=== PATIENT | female | born 1935 | race Caucasian/White ===

== ENCOUNTER 2019-02-17 09:43 | Observation (INO) ==
--- NOTE | 2019-02-17 09:28 | Anesthesia Evaluation PreOp ---
Date of Encounter: 02/17/19 Time of Encounter: 11:03 - Past History Planned Operation: Right Total Knee Arthroplasty Cardiac History: HTN, Hyperlipidemia Pulmonary History: Former smoker (quit 40 years ago), Snore FINANCIAL OFFICER History: Denies Any Significant HX Other Medical History: Renal (CKD stage 3), Thyroid, GERD, Other (polymyalgia rheumatica on chronic steroids) Anesthesia History: No Prior Anesthetic Complications, Past Anesthesia Alcohol Use: rarely Drug use: none Medications and Allergies Amitriptyline [Elavil] 25 mg PO BID 02/17/19 [History] Amlodipine Besylate 10 mg PO DAILY 02/17/19 [History] Cholecalciferol (D-3) [Vitamin D] 1,000 unit PO BID 02/17/19 [History] Furosemide [Lasix] 20 mg PO DAILY PRN 02/17/19 [History] Levothyroxine [Synthroid] 25 mcg PO 0630 02/17/19 [History] Multivitamin [One Daily Multivitamin] 1 tab PO DAILY 02/17/19 [History] Omeprazole 20 mg PO DAILY 02/17/19 [History] Primidone 50 mg PO DAILY 02/17/19 [History] predniSONE [Prednisone] 2.5 mg PO DAILY 02/17/19 [History] Allergy/AdvReac Type Severity Reaction Status Date / Time alendronate sodium Allergy swelling Verified 02/17/19 10:20 [From Fosamax] ciprofloxacin [From Cipro] Allergy swelling Verified 02/17/19 10:20 codeine Allergy Rash Verified 02/17/19 10:20 colesevelam Allergy unknown Verified 02/17/19 10:20 doxycycline Allergy Rash Verified 02/17/19 10:20 Erythromycin Base Allergy Rash Verified 02/17/19 10:20 iodine Allergy swelling Verified 02/17/19 10:20 meclizine [From Antivert] Allergy unknown Verified 02/17/19 10:20 Penicillins Allergy swelling Verified 02/17/19 10:20 Quinolones Allergy unknown Verified 02/17/19 10:20 Vfqsziq-Iis-Cdh Reductase Allergy Hives Verified 02/17/19 10:20 Inhibitor [Statins] meperidine [From Demerol] AdvReac Gastrointestinal Verified 02/17/19 10:20 Upset morphine AdvReac Gastrointestinal Verified 02/17/19 10:20 Upset - Meds/Allergy Pre-op Review Medications Reviewed: Yes Allergies Reviewed: Yes Beta Blockers on Current Med List: No Anesthesia Results - Labs Laboratory Tests 02/03/19 02/03/19 02/03/19 10:52 10:52 10:52 WBC 6.5 Hgb 12.3 Hct 37.0 Plt Count 320 PT 10.6 INR 0.9 APTT 26.8 Sodium 138 Potassium 3.8 BUN 13 Creatinine 1.18 - Imaging EKG: report reviewed (02/06/2019 SINUS RHYTHM MARKED LEFT AXIS DEVIATION [QRS AXIS < -30] MINIMAL VOLTAGE CRITERIA FOR LVH, CONSIDER NORMAL VARIANT POSSIBLE ANTERIOR MYOCARDIAL INFARCTION [30 ms Q WAVE IN V3/V4, OR R < 0.2 mV IN V4], OF INDETERMINATE AGE) Additional studies: 06/26/2017 Stress Impression: Perfusion imaging was negative for ischemia or infarct. Pharmacologic stress ECG is negative for ischemia at level of heart rate achieved. No appreciable change in pharmacologic ECG from baseline. Patient had 5/10 chest pain/pressure during pharmacologic stress. Patient hypertensive throughout testing, SBP 160-170 mmHg. Gated EF > 70%. Recommend clinical correlation. 05/03/2017 Echo Impressions: LVEF 55-60%. Normal LV chamber size and function. Asymmetric hypertrophy of the basal seputm. Mild left ventricular diastolic dysfunction. Normal right ventricular structure and function. Mild aortic regurgitation. No evidence of pulmonary hypertension. Anesthesia Exam O2 Sat Height 1.6 m Height 1.6 m Weight 70.307 kg Weight 70.307 kg O2 Sat by Pulse Oximetry 96 O2 Sat by Pulse Oximetry 96 Vital Signs Temp Pulse Resp BP Pulse Ox 98.8 F 89 18 165/87 96 02/17/19 10:05 02/17/19 10:05 02/17/19 10:05 02/17/19 10:05 02/17/19 10:05 Height: 5'3'' Weight: 155 lbs NPO (# of Hours): 8 Pain Scale: 0 Pain Scale Used: Numeric (1 - 10) - HEENT Pupil (Motor): EOMI Mallampati: II Teeth: Edentulous Denture Type: Upper: Complete, Lower: Complete Oral Opening: Greater than 3 - FINANCIAL OFFICER LOC: Oriented FINANCIAL OFFICER Motor: Normal RUE, Normal LUE, Normal RLE, Normal LLE, Normal Face FINANCIAL OFFICER Sensory: Normal: RUE, LUE, RLE, LLE, Face - Cardiac Rhythm: Regular Murmur: None - Pulmonary Breath Sounds: bilateral Clear Respiratory Effort: Symmetrical Anesthesia Assess/Plan ASA Score: 3 Level of consciousness: Cooperative, Oriented, Tranquil Anesthetic Plan: General, Regional Nerve Block Regional Nerve Block Plan: Adductor canal Reason for No Neuroaxial/Regional Block: Patient refusal Monitoring Plan: Standard Monitors Recovery Plan: PACU
--- NOTE | 2019-02-17 09:54 | History & Physical Report ---
Date of Encounter: 02/17/19 Time of Encounter: 09:53 24 Hour HP Update - Instructions Instructions: If the History and Physical is less than 30 days old and was completed prior to A.M. admission and or procedure and has NOT been updated on calendar day of procedure please complete this update prior to performing procedure. - Update Patient reports changes in Medical Condition: No Changes in examination, assessment, or condition: No Changes in Medication: No Preop tests/diagnostics Reviewed: Yes Surgery Remains Indicated: Yes Consent for Planned Operative Procedure(s) Verified: Yes - Pre-Operative Checklist Preoperative Checklist Indicated: No Prophylactic Antibiotic Ordered: Yes Is VTE Prophylaxis Indicated?: Yes
[2019-02-17] MEDS ORDERED: Clindamycin 900 MG/50 ML 900 MG/50 ML IV.SOLN IVPB ONE (10:23)
[2019-02-17] MEDS ORDERED: Ringers Solution, Lactated 1,000 ML IVC SCH (10:30)
[2019-02-17] MEDS ORDERED: *HR* FentaNYL (PF) 100 MCG/2 ML VIAL ONE (10:33)
[2019-02-17] MEDS ORDERED: *HR* Midazolam HCl 2 MG/2 ML VIAL ONE (10:33)
[2019-02-17] MEDS ORDERED: Lidocaine -MPF 2% 2 ML VIAL ONE (10:35)
[2019-02-17] MEDS ORDERED: *HR* OxyCODONE ER (12 HR) 10 MG TABLET PO ONE (11:07)
[2019-02-17] MEDS ORDERED: Ondansetron 4 MG/2 ML VIAL IVP ONE (11:08)
[2019-02-17] MEDS ORDERED: Total Joint Mixture (50 ml) IR ONE (12:05)
[2019-02-17] MEDS ORDERED: ROPIVACAINE/PF/NS 0.25% 1 EACH SYRINGE INTRAART ONE (12:08)
[2019-02-17] MEDS ORDERED: Ethanol\\Acetic Acid\\Na Ace\\Ben 1,000 ML IRRIG.SOLN IR ONE (12:09)
[2019-02-17] MEDS ORDERED: Lidocaine HCL 4 ML Topical Solution (Laryng-O-Jet Kit Sterile Pak) TP ONE (12:10)
[2019-02-17] MEDS ORDERED: *HR* Propofol 200 MG/20 ML VIAL IVP ONE (12:10)
[2019-02-17] MEDS ORDERED: *HR* Succinylcholine 200 MG/10 ML VIAL IVP ONE ×2 (12:11→14:20)
[2019-02-17] MEDS ORDERED: *HR* Rocuronium Bromide 50 MG/5 ML VIAL ONE (12:11)
[2019-02-17] MEDS ORDERED: Hydrocortisone Sodium Succ 100 MG/2 ML VIAL ONE (12:21)
[2019-02-17] MEDS ORDERED: Ondansetron 4 MG/2 ML VIAL ONE (12:46)
[2019-02-17] MEDS ORDERED: EPHEDrine 50 MG/ML VIAL ONE (12:49)
[2019-02-17] MEDS ORDERED: Tranexamic Acid 1,000 MG/10 ML VIAL ONE (12:49)
--- NOTE | 2019-02-17 13:24 | Anesthesia Procedures ---
Date of Encounter: 02/17/19 Time of Encounter: 12:05 Procedures: Anesthesia - Nerve Block Procedure Date: 02/17/19 Time: 12:05 Allergies/Adv Reactions: multiple see chart Pre-op Diagnosis: right knee arthritis Surgical Procedure: right total knee Checklist: Correct Patient Identifier, Correct procedure, History checked Correct side: Right Blood Thinner: No Monitor Applied: EKG, BP, Pulse Oximetry Supplemental Oxygen via Nasal Cannula (L/min): 2 Sedation: Versed (mg): 1 Sedation: Fentanyl (mcg): 50 Indication: Post Op Analgesia Pre-op Neuro Deficits: No Block Type: Other (adductor canal) Catheter placed: No Sterile Technique: Yes Ultrasound used: Yes Anatomy identified: Yes Visual spread of Local: Yes Neuro Stimulation: No Blood on Needle Aspiration: No Smooth Injection of Local: Yes Pain with Injection of Local: No Needle: 21 x 100 mm Stimuplex Local: Ropivacaine (0.25% ) Volume (cc): 15 Number of Attempts: 1 Complications: None/effective block Vitals: see nurses notes for vitals, patient tolerated well
--- NOTE | 2019-02-17 13:29 | Orthopedic Operative Note ---
Date of procedure: 02/17/19 Pre-op diagnosis: Right knee arthritis Post-op diagnosis: same Procedure: Procedure: Right robotic-assisted Total knee replacement Estimated blood loss: 200 cc Hardware: Metal and polyethylene replacement. [place] Femur: 4 Tibia: 3 TS insert: 13 Patella: 36 Exam Under anesthesia: 0 degrees flexion-extension, 10 degree varus as calculated by the robot full flexion and no instability Procedural Notes: Grade 4 arthritic changes all 3 compartments. Operative procedure: The patient was brought to the operating room and placed on the operating room table. After anesthesia was administered the operative knee was examined. Findings were noted in the exam under anesthesia. The operative extremity was prepped and draped in sterile surgical fashion. The patient received IV antibiotics prior to skin incision. A standard midline incision was made centered over the patella. The incision was made through the skin and subcutaneous tissue. A medial parapatellar tendon approach was performed. Care was taken to preserve tissue along the medial aspect of the patella. And to protect the patella tendon. The deep MCL was released off the medial tibia. The infra patella fat pad was excised. The patella was everted and cut was made at the level of the insertion of the quadriceps and patella tendon. The patella was sized the guide was seated and the lug holes are drilled. Knee was brought into flexion. Patient noted to have grade 4 arthritic changes all 3 compartments. Steinmann pins were placed in the tibia and the femur for the tibial and femoral arrays respectively. Checkpoints were also placed in the tibia and the femur for calculation purposes. The knee including the femur and the tibial registered. Osteophytes, ACL and PCL were excised at this point. Extension and flexion were assessed with a valgus stress components were adjusted on the computer to balance the knee. Femoral cuts were made first with robotic assistance, these included the anterior cut posterior cuts chamfer cuts. Tibial cut was then performed with robotic assistance as well. Bone fragments were removed, as well as the medial and lateral meniscus. The size 4 femoral guide was seated box cut was made lug holes are drilled. The size 3 tibial tray was seated and prepared with the fin cutter. Trial reduction with the 13 TS Tita revealed 0 degrees extension of and 3 degrees varus full flexion. No varus valgus instability. Trial reduction revealed excellent patella tracking. All trial components were removed all bony surfaces were irrigated. The Tibia was seated followed by the femur, The selected Tita size was seated and secured patella. Patient had similar findings for motion and stability. The knee was closed by the PA. The knee was then irrigated out with 2 L of pulse irrigation. The extensor mechanism was closed with #2 FiberWire suture and #2 PDS suture. The subcutaneous tissue was then irrigated and closed deep with #1 PDS suture superficially with 0 PDS suture and skin was closed with zip tie The patient was then placed in a sterile dressing and a postoperative brace and transferred to recovery room in stable condition. Anesthesia: GETA Surgeon: Hugo Thomas Was there an wellness assistant present: No Estimated blood loss (cc): 200 Condition: stable Disposition: PACU
[2019-02-17] MEDS: *HR* HYDROmorphone (PF) 1 MG/ML SYRINGE IVP PRN ×2 (14:25→14:35)
[2019-02-17 14:41] LABS: Hematocrit 33.3 % (35.3-44.9); Hemoglobin 11.3 g/dL (11.5-15.4)
--- NOTE | 2019-02-17 14:58 | Anesthesia Evaluation Post Op ---
Date of Encounter: 02/17/19 Time of Encounter: 14:57 - Vital Signs Vital Signs: Selected Entries 02/17/19 14:35 02/17/19 14:45 Temperature 98.1 F Pulse Rate 88 Respiratory Rate 14 Blood Pressure 139/70 O2 Sat by Pulse Oximetry 96 - Lungs Lungs: Clear Ascult./Percussion - Airway Airway: Non-obstructed - Cardiovascular Regular Rate - Mental Status Mental Status: Alert & Oriented, Answers Appropriately - Pain Pain Scale: 2 Pain Scale used: Numeric (1 - 10) - Nausea Vomiting Nausea Vomiting: Not Present - Hydration Hydration: Ice chips, Has not voided - Discharge PostOp Status: Transfer Patient to floor
[2019-02-17] MEDS ORDERED: Naloxone 0.4 MG/ML INJ IVP PRN (15:06)
[2019-02-17] MEDS ORDERED: *HR* Promethazine 25 MG/ML VIAL IVP PRN (15:06)
[2019-02-17] MEDS ORDERED: Ondansetron 4 MG/2 ML VIAL IVP PRN (15:06)
[2019-02-17] MEDS ORDERED: Furosemide 20 MG TABLET PO PRN (15:06)
[2019-02-17] MEDS ORDERED: Temazepam 15 MG CAPSULE PO PRN (15:06)
[2019-02-17] MEDS ORDERED: HYDROcodone BIT/Homatropine 5 MG TABLET PO PRN (15:06)
[2019-02-17] MEDS ORDERED: Sennosides 8.6 MG TABLET PO PRN (15:06)
[2019-02-17] MEDS ORDERED: MOM Conc 10 ML UD.LIQ PO PRN (15:06)
--- NOTE | 2019-02-17 16:38 | Discharge Summary ---
Orders not resulted at time of discharge: Pending orders 02/17/19 13:26 Surgical Pathology [PTH] Routine Date of Encounter: 02/19/19 Time of Encounter: 09:00 - Discharge Diagnosis (1) Arthritis of right knee Priority: Primary Status: Chronic (2) Status post total right knee replacement Priority: Primary Status: Acute (3) HTN (hypertension) Priority: Secondary Status: Chronic Qualifiers: Hypertension type: unspecified Qualified Code(s): I10 - Essential (primary) hypertension (4) Thyroid disorder Priority: Secondary Status: Chronic (5) Polymyalgia rheumatica Priority: Secondary Status: Chronic (6) Osteopenia Priority: Secondary Status: Chronic Qualifiers: Osteopenia location: unspecified Qualified Code(s): M85.80 - Other specified disorders of bone density and structure, unspecified site (7) CKD (chronic kidney disease) Priority: Secondary Status: Chronic Qualifiers: Chronic kidney disease stage: unspecified stage Qualified Code(s): N18.9 - Chronic kidney disease, unspecified (8) GERD (gastroesophageal reflux disease) Priority: Secondary Status: Chronic Qualifiers: Esophagitis presence: esophagitis presence not specified Qualified Code(s): K21.9 - Gastro-esophageal reflux disease without esophagitis (9) Hyponatremia Priority: Secondary Status: Acute (10) Acute blood loss anemia Priority: Secondary Status: Acute - Hospital Course Hospital course: Ms. Miller is a 83 year old female s/p Right robotic-assisted Total knee replacement [arthritis] 02/17/19 Patient seen at bedside. Daughter at bedside. Discharge held POD#1 secondary to dizziness. Patient admited to intermittent episodes of lightheadedness. Found to have hyponatremia today. Nl saline bolus given with improvement in sodium and stable labs otherwise. Patient's family had requested possible placement to ECF, however, patient was not accepted at desired locations and insurance would not approve. Therefore, patient will discharge home with home health with family support in home. Per report by patient, she lives at home with her daughter who verifies this accuracy. A&Ox3 Dressing and incision c/d/i No calf tenderness, erythema, or warmth. Neurovascularly intact b/l LE. Labwork, vitals, and medications reviewed. Pain control: Adequate Participating in therapy. All questions and concerns addressed. Educated on use of incentive spirometer, ambulation, and hydration. Patient educated on post-operative restrictions and care. Addressed: Patient to have repeat labwork through home health upon discharge. The patient's postoperative course was uneventful. Progressed from intravenous analgesic needs to oral analgesic needs only. Remained neurovascularly intact and mobilized satisfactorily. All radiographic studies were satisfactory. Patient course and disposition discussed with Dr. Thomas. Patient is discharged to Home with home health with plan for rehabilitation and outpatient orthopedic follow up has been arranged. - Time Spent with Patient Total time spent providing and/or coordinating discharge services: - Discharge Medications Prescriptions: New Docusate Sodium [Colace] 100 mg PO BID 5 Days #10 capsule Acetaminophen [Non-Aspirin Extra Strength] 500 mg PO Q6H PRN 7 Days #28 tablet PRN Reason: Mild To Moderate Pain OxyCODONE Immed Rel [Roxicodone 5 MG] 5 mg PO Q6HR PRN 5 Days #20 tablet PRN Reason: Severe Pain Aspirin Enteric Coated [Aspirin EC] 325 mg PO BID 10 Days #20 tablet.dr Mon Amitriptyline [Elavil] 25 mg PO BID Amlodipine Besylate 10 mg PO DAILY Furosemide [Lasix] 20 mg PO DAILY PRN PRN Reason: Edema Levothyroxine [Synthroid] 25 mcg PO 0630 Omeprazole 20 mg PO DAILY predniSONE [Prednisone] 2.5 mg PO DAILY Primidone 50 mg PO DAILY Cholecalciferol (D-3) [Vitamin D] 1,000 unit PO BID Multivitamin [One Daily Multivitamin] 1 tab PO DAILY Home Medications: Acetaminophen [Non-Aspirin Extra Strength] 500 mg PO Q6H PRN 7 Days #28 tablet 02/17/19 [Rx] Amitriptyline [Elavil] 25 mg PO BID 02/17/19 [History] Amlodipine Besylate 10 mg PO DAILY 02/17/19 [History] Aspirin Enteric Coated [Aspirin EC] 325 mg PO BID 10 Days #20 tablet. 02/17/19 [Rx] Cholecalciferol (D-3) [Vitamin D] 1,000 unit PO BID 02/17/19 [History] Docusate Sodium [Colace] 100 mg PO BID 5 Days #10 capsule 02/17/19 [Rx] Furosemide [Lasix] 20 mg PO DAILY PRN 02/17/19 [History] Levothyroxine [Synthroid] 25 mcg PO 0630 02/17/19 [History] Multivitamin [One Daily Multivitamin] 1 tab PO DAILY 02/17/19 [History] Omeprazole 20 mg PO DAILY 02/17/19 [History] OxyCODONE Immed Rel [Roxicodone 5 MG] 5 mg PO Q6HR PRN 5 Days #20 tablet 02/17/19 [Rx] Primidone 50 mg PO DAILY 02/17/19 [History] predniSONE [Prednisone] 2.5 mg PO DAILY 02/17/19 [History] Allergies/Adverse Reactions: Allergy/AdvReac Type Severity Reaction Status Date / Time alendronate sodium Allergy swelling Verified 02/17/19 10:20 [From Fosamax] ciprofloxacin [From Cipro] Allergy swelling Verified 02/17/19 10:20 codeine Allergy Rash Verified 02/17/19 10:20 colesevelam Allergy unknown Verified 02/17/19 10:20 doxycycline Allergy Rash Verified 02/17/19 10:20 Erythromycin Base Allergy Rash Verified 02/17/19 10:20 iodine Allergy swelling Verified 02/17/19 10:20 meclizine [From Antivert] Allergy unknown Verified 02/17/19 10:20 Penicillins Allergy swelling Verified 02/17/19 10:20 Quinolones Allergy unknown Verified 02/17/19 10:20 [id number] Reductase Allergy Hives Verified 02/17/19 10:20 Inhibitor [Statins] meperidine [From Demerol] AdvReac Gastrointestinal Verified 02/17/19 10:20 Upset morphine AdvReac Gastrointestinal Verified 02/17/19 10:20 Upset Date of admission: 02/17/19 Primary care physician: Ousmane Ng Jr, MD Consults: 02/17/19 15:06 Consult to Nutrition [CONS] Routine Comment: Consulting Provider: NUTRITION Reason for Dietary Consult: Other Other:: Proper nutrition to facilitate wound healing Consult to Occupational Therapy [CONS] Routine Comment: Evaluate, develop and implement POC Reason for Consult: post knee surgery Does patient have active BEDREST order?: No Is patient medically & hemodynamically stable?: Yes Consult to Orthopedic Navigator [CONS] [CONS] Routine Consult to Physical Therapy [CONS] Routine Comment: Evaluate, develop and impliment POC Reason for Consult: post knee surgery Does patient have active BEDREST order?: No Is patient medically & hemodynamically stable?: Yes Consult to Raise Driller [CONS] Routine Reason for SW Consult: post op joint replacement RT Post Op Consult [CONS] Routine Discharging clinician: Hguo Thomas Anticipated date of discharge: 02/19/19 - VTE Documentation of Mechanical Device: Venous foot pump, device Labs on day of discharge: Labs from last 24 hours 02/17/19 14:22 Hgb 11.3 L Hct 33.3 L - Impressions ITS Impressions Knee X-Ray 02/17/19 15:59 IMPRESSION: Status post right knee arthroplasty as described above. Satisfactory alignment. D/ / 02/17/2019 16:01:20 Jj Rhoades MD / [facility] Interpreting Provider: Jj Rhoades MD - Patient Status Disposition: Home Health Service Condition: Fair Functional capacity at discharge: uses cane/walker Overall status at discharge: patient is progressing back to baseline - Discharge Instructions Follow Up With: Ousmane Ng Jr, MD [Primary Care Provider] - - Diet and Activity Activity: as per physical therapy Diet: advance to your usual diet
[2019-02-17] MEDS: Ascorbic Acid 500 MG TABLET PO SCH (17:08)
[2019-02-17] MEDS: Clindamycin 900 MG/50 ML 900 MG/50 ML IV.SOLN IVPB SCH (18:54)
[2019-02-17] MEDS: Ringers Solution, Lactated 1,000 ML IVC SCH (21:52)
[2019-02-17] MEDS: Cholecalciferol (D-3) 1,000 UNIT (25MCG) TABLET PO SCH (21:54)
[2019-02-18] MEDS: Clindamycin 900 MG/50 ML 900 MG/50 ML IV.SOLN IVPB SCH (01:39)
[2019-02-18] MEDS: Ringers Solution, Lactated 1,000 ML IVC SCH (01:40)
[2019-02-18] MEDS: Levothyroxine 25 MCG TABLET PO SCH (05:15)
[2019-02-18 05:22] LABS: Basophils % 0.4 %; Eosinophils % 0.2 %; Hematocrit 27.2 % (35.3-44.9); Immature Granulocytes % 0.4 % (0-4); Lymphocytes # 2.9 K/mcL (0.6-4.6); Lymphocytes % 26.3 %; Mean Corpuscular HGB Conc 33.8 g/dL (31.6-35.5); Mean Corpuscular Hemoglobin 30.8 pg (28.0-33.3); Mean Platelet Volume 10.4 fL (9.4-12.4); Monocytes # 1.1 K/mcL (0.0-1.3); Platelet Count 234 K/mcL (140-400); Red Blood Count 2.99 M/mcL (3.82-4.97); Red Cell Distribution Width 13.2 % (11.5-14.5); Segmented Neutrophils % 62.7 %; White Blood Count 11.1 K/mcL (4.3-11.1)
[2019-02-18 05:23] LABS: Hemoglobin 9.2 g/dL (11.5-15.4)
[2019-02-18 05:35] LABS: BUN/Creatinine Ratio 24 (6-26); Blood Urea Nitrogen 24 mg/dL (8-23); Calcium 8.2 mg/dL (8.6-10.3); Carbon Dioxide 26 mEq/L (23-29); Chloride 101 mEq/L (98-107); Glucose 100 mg/dL (70-105); Osmolality,Calculated 284 (280-300); Potassium 3.6 mEq/L (3.5-5.1); Sodium 135 mEq/L (136-145); eGFR For African Americans > 60 (> 60); eGFR For Non-African Americans 52 (> 60)
--- NOTE | 2019-02-18 06:22 | Orthopedics Progress Note ---
Date of Encounter: 02/18/19 Time of Encounter: 06:21 - Assessment and Plan (1) Acute blood loss anemia Current Visit: Yes Status: Acute Subjective Interval history: Patient was seen this morning doing well without complaints. Afebrile vital signs stable. Operative extremity: Neurovascularly intact Dressing clean dry and intact Calves nontender Assessment and plan: Continue with postoperative care Hematocrit 27 Objective Vital signs: Vital Signs Temp Pulse Resp BP Pulse Ox 02/18/19 03:11 97.6 F 73 14 112/63 94 02/17/19 22:31 97.8 F 78 16 126/72 93 02/17/19 21:57 93 02/17/19 18:05 97.6 F 87 15 121/70 96 02/17/19 17:05 98.7 F 80 15 120/71 95 02/17/19 16:05 98.6 F 84 16 139/70 96 02/17/19 15:35 98.7 F 86 15 120/72 95 02/17/19 15:08 98.7 F 86 16 130/72 96 02/17/19 15:05 98.7 F 86 15 130/72 96 02/17/19 14:55 98.1 F 84 14 123/82 95 02/17/19 14:45 88 14 139/70 96 02/17/19 14:35 98.1 F 85 12 137/70 94 02/17/19 14:25 83 12 143/74 95 02/17/19 14:15 86 14 151/72 95 02/17/19 14:05 99.2 F 100 16 140/82 93 02/17/19 12:24 72 147/77 95 02/17/19 12:06 75 175/97 93 02/17/19 10:39 98.8 F 89 18 165/87 96 02/17/19 10:05 98.8 F 89 18 165/87 96 Intake and Output 02/17/19 02/17/19 02/18/19 15:59 23:59 07:59 Intake Total 50 / 500 450 / 500 250 / 250 Output Total 200 / 300 100 / 300 0 / 0 Balance -150 / 200 350 / 200 250 / 250 Intake: IV Fluids 50 / 100 50 / 100 Cleocin Premix 900 MG/50 ML 900 50 / 100 50 / 100 mg In 50 ml @ 50 mls/hr IVPB Q8H [facility] Rx#:[id number] Oral 400 / 400 250 / 250 Output: Urine 100 / 100 0 / 0 Estimated Blood Loss 200 / 200 Other: # Voids 1 # Urine Diapers 1 Weight 70.307 kg 70.9 kg Blood Glucose* 138 153 Patient Weight 02/18/19 23:59 Weight 70.9 kg - Labs CBC & BMP: 02/18/19 03:54 02/18/19 03:54 Labs: Abnormal lab results RBC 2.99 M/mcL (3.82-4.97) L 02/18/19 03:54 Hgb 9.2 g/dL (11.5-15.4) L D 02/18/19 03:54 Hct 27.2 % (35.3-44.9) L 02/18/19 03:54 Sodium 135 mEq/L (136-145) L 02/18/19 03:54 BUN 24 mg/dL (8-23) H 02/18/19 03:54 Est GFR (Non-Af Amer) 52 (> 60) L 02/18/19 03:54 Calcium 8.2 mg/dL (8.6-10.3) L 02/18/19 03:54 - VTE Documentation of Mechanical Device: Venous foot pump, device Consult Discharge Plan - Plan Referrals: Ousmane Ng Jr, MD [Primary Care Provider] - Prescriptions: Aspirin Enteric Coated [Aspirin EC] 325 mg PO BID 10 Days #20 tablet.dr Prescription Printed Docusate Sodium [Colace] 100 mg PO BID 5 Days #10 capsule Prescription Printed Acetaminophen [Non-Aspirin Extra Strength] 500 mg PO Q6H PRN 7 Days #28 tablet PRN Reason: Mild To Moderate Pain Prescription Printed OxyCODONE Immed Rel [Roxicodone 5 MG] 5 mg PO Q6HR PRN 5 Days #20 tablet PRN Reason: Severe Pain Prescription Printed
[2019-02-18] MEDS ORDERED: NON-FORMULARY MEDICATION 1 EACH EACH (Multivitamin [One Daily Multivitamin] 1 TAB) PO SCH (09:00)
[2019-02-18] MEDS: *HR* OxyCODONE Immed Rel 5 MG TABLET PO PRN ×2 (10:18→17:09)
[2019-02-18] MEDS: Ascorbic Acid 500 MG TABLET PO SCH ×2 (10:18→17:08)
[2019-02-18] MEDS: Cholecalciferol (D-3) 1,000 UNIT (25MCG) TABLET PO SCH ×2 (10:18→20:06)
[2019-02-18] MEDS: Multivit/Ca/Min/Fe/FA 1 TAB TABLET PO SCH (10:20)
[2019-02-18] MEDS: Aspirin Enteric Coated 81 MG Tablet PO SCH (10:20)
[2019-02-18] MEDS: predniSONE 5 MG TABLET PO SCH (10:20)
[2019-02-18] MEDS: amLODIPine 5 MG TABLET PO SCH (10:30)
--- NOTE | 2019-02-18 11:50 | Physician Discharge Referral ---
Home Health/Hosp Referral Info Transfer to: Home Health Attending Provider: Dr. Hugo Thomas - Diagnosis (1) Arthritis of right knee Priority: Primary Status: Chronic (2) Status post total right knee replacement Priority: Primary Status: Acute (3) HTN (hypertension) Priority: Secondary Status: Chronic (4) Thyroid disorder Priority: Secondary Status: Chronic (5) Polymyalgia rheumatica Priority: Secondary Status: Chronic (6) Osteopenia Priority: Secondary Status: Chronic (7) CKD (chronic kidney disease) Priority: Secondary Status: Chronic (8) GERD (gastroesophageal reflux disease) Priority: Secondary Status: Chronic - Respiratory Orders Smoking Cessation: Smoking cessation has been advised. For more information, call the [place] Tobacco Quit Line at 5-955-EYDT-NOW. - Diet/Nutrition Diet/Nutrition Orders: Regular - Activity Activity Orders: Up ad severino, Ambulate, Chair, Walker - Services Needed Following services are medically necessary services: Nursing, Home Health Aide, Physical Therapy, Occupational Therapy, Med Social Work Home Care Orders: Total Knee replacement Precautions x 6 weeks Apply cold therapy wrap 3-6x/day for 20 minutes at a time. Encourage ambulation throughout the day and incentive spirometer 10x/hour. Elevate affected extremity above heart as tolerated. Brace: Wear knee immobilizer at night x 2 weeks. Opsite placed. Keep dressing intact until first follow up appointment. If greater than 50% saturated, notify office, remove dressing and place appropriate dressing back in place. Leave Zipline intact. Opsite dressing is water resistant, not water-proof. OK to shower, but do not get dressing wet. Repeat H/H and BMP 02/21/19, 02/24/19, and 02/27/19. Patient to be on 2 Liter fluid restriction for hyponatremia until sodium returns to 135 or greater. Keep outpatient follow up as scheduled - Transfer Medications Prescriptions: Aspirin Enteric Coated [Aspirin EC] 325 mg PO BID 10 Days #20 tablet. Prescription Printed Docusate Sodium [Colace] 100 mg PO BID 5 Days #10 capsule Prescription Printed Acetaminophen [Non-Aspirin Extra Strength] 500 mg PO Q6H PRN 7 Days #28 tablet PRN Reason: Mild To Moderate Pain Prescription Printed OxyCODONE Immed Rel [Roxicodone 5 MG] 5 mg PO Q6HR PRN 5 Days #20 tablet PRN Reason: Severe Pain Prescription Printed Home Medications: Acetaminophen [Non-Aspirin Extra Strength] 500 mg PO Q6H PRN 7 Days #28 tablet 02/17/19 [Rx] Amitriptyline [Elavil] 25 mg PO BID 02/17/19 [History] Amlodipine Besylate 10 mg PO DAILY 02/17/19 [History] Aspirin Enteric Coated [Aspirin EC] 325 mg PO BID 10 Days #20 tablet. 02/17/19 [Rx] Cholecalciferol (D-3) [Vitamin D] 1,000 unit PO BID 02/17/19 [History] Docusate Sodium [Colace] 100 mg PO BID 5 Days #10 capsule 02/17/19 [Rx] Furosemide [Lasix] 20 mg PO DAILY PRN 02/17/19 [History] Levothyroxine [Synthroid] 25 mcg PO 0630 02/17/19 [History] Multivitamin [One Daily Multivitamin] 1 tab PO DAILY 02/17/19 [History] Omeprazole 20 mg PO DAILY 02/17/19 [History] OxyCODONE Immed Rel [Roxicodone 5 MG] 5 mg PO Q6HR PRN 5 Days #20 tablet 02/17/19 [Rx] Primidone 50 mg PO DAILY 02/17/19 [History] predniSONE [Prednisone] 2.5 mg PO DAILY 02/17/19 [History] Allergies/Adverse Reactions: Allergy/AdvReac Type Severity Reaction Status Date / Time alendronate sodium Allergy swelling Verified 02/17/19 10:20 [From Fosamax] ciprofloxacin [From Cipro] Allergy swelling Verified 02/17/19 10:20 codeine Allergy Rash Verified 02/17/19 10:20 colesevelam Allergy unknown Verified 02/17/19 10:20 doxycycline Allergy Rash Verified 02/17/19 10:20 Erythromycin Base Allergy Rash Verified 02/17/19 10:20 iodine Allergy swelling Verified 02/17/19 10:20 meclizine [From Antivert] Allergy unknown Verified 02/17/19 10:20 Penicillins Allergy swelling Verified 02/17/19 10:20 Quinolones Allergy unknown Verified 02/17/19 10:20 Sahvddv-Kij-Osi Reductase Allergy Hives Verified 02/17/19 10:20 Inhibitor [Statins] meperidine [From Demerol] AdvReac Gastrointestinal Verified 02/17/19 10:20 Upset morphine AdvReac Gastrointestinal Verified 02/17/19 10:20 Upset Certification: Further, I certify that my clinical findings support that this patient is home bound (i.e. absences from home require considerable and taxing effort and are for medical reasons or mandaen services or infrequently or short duration when for other reasons) because: Homebound Reason: Post-surgery restriction and or conditions limit ability to leave home Attestation: My signature below is to certify that this patient is under my care and that I, or nurse practitioner, or a physician pharmacy innovation assistant working with me, has a [id number] encounter with this patient.
[2019-02-18] MEDS: traMADol 50 MG TABLET PO PRN (13:48)
--- NOTE | 2019-02-18 15:23 | Event Note ---
Date of Encounter: 02/18/19 Time of Encounter: 09:45 POD#1 s/p Right robotic-assisted Total knee replacement [arthritis] 02/17/19 Patient seen at bedside. Daughter at bedside. Patient admits to intermittent episodes of lightheadedness. A&Ox3 Dressing and incision c/d/i No calf tenderness, erythema, or warmth. Neurovascularly intact b/l LE. Labwork, vitals, and medications reviewed. Pain control: Adequate Participating in therapy. All questions and concerns addressed. Educated on use of incentive spirometer, ambulation, and hydration. Patient educated on post-operative restrictions and care. Addressed: Patient declines to discharge today stating pain not fully under control to be able to be at home and states concern regarding her BP. Ordered more frequent vitals checks and PO hydration. Patient course and disposition discussed with Dr. Thomas D/C plan: Home with home health tomorrow.
[2019-02-18] MEDS: Primidone 50 MG TABLET PO SCH (20:06)
[2019-02-19 05:01] LABS: Basophils % 0.3 %; Eosinophils # 0.1 K/mcL (0.0-0.6); Eosinophils % 0.6 %; Hemoglobin 9.9 g/dL (11.5-15.4); Immature Granulocytes % 0.5 % (0-4); Lymphocytes # 2.3 K/mcL (0.6-4.6); Lymphocytes % 19.7 %; Mean Corpuscular HGB Conc 34.1 g/dL (31.6-35.5); Mean Corpuscular Volume 90.9 fL (83.0-100.0); Mean Platelet Volume 9.7 fL (9.4-12.4); Monocytes # 1.1 K/mcL (0.0-1.3); Monocytes % 9.5 %; Neutrophils # 8.1 K/mcL (1.6-8.9); Platelet Count 238 K/mcL (140-400); Red Blood Count 3.19 M/mcL (3.82-4.97); Red Cell Distribution Width 13.1 % (11.5-14.5); Segmented Neutrophils % 69.4 %; White Blood Count 11.7 K/mcL (4.3-11.1)
[2019-02-19 05:20] LABS: BUN/Creatinine Ratio 14 (6-26); Blood Urea Nitrogen 14 mg/dL (8-23); Calcium 8.6 mg/dL (8.6-10.3); Carbon Dioxide 24 mEq/L (23-29); Chloride 93 mEq/L (98-107); Glucose 117 mg/dL (70-105); Osmolality,Calculated 268 (280-300); Potassium 3.2 mEq/L (3.5-5.1); Sodium 128 mEq/L (136-145); eGFR For African Americans > 60 (> 60); eGFR For Non-African Americans 53 (> 60)
[2019-02-19] MEDS: Levothyroxine 25 MCG TABLET PO SCH (05:22)
[2019-02-19] MEDS: traMADol 50 MG TABLET PO PRN (05:27)
--- NOTE | 2019-02-19 08:01 | Orthopedics Progress Note ---
Date of Encounter: 02/19/19 Time of Encounter: 08:00 - Assessment and Plan (1) Acute blood loss anemia Current Visit: Yes Status: Acute Subjective Interval history: Patient was seen this morning doing well without complaints. Afebrile vital signs stable. Operative extremity: Neurovascularly intact Dressing clean dry and intact Calves nontender Assessment and plan: Continue with postoperative care hb 9.9 Objective Vital signs: Vital Signs Temp Pulse Resp BP Pulse Ox 02/19/19 05:18 97.7 F 86 16 149/78 90 02/18/19 22:12 98.8 F 110 16 129/56 98 02/18/19 19:45 98.0 F 74 18 127/66 98 02/18/19 12:16 138/73 Intake and Output 02/18/19 02/19/19 02/19/19 23:59 07:59 15:59 Intake Total 550 / 850 50 / 50 Balance 550 / 250 50 / 50 Intake: IV Fluids 500 / 550 Lactated Ringers 1,000 ML @ 75 500 / 500 mls/hr IVC .[id number] [facility] Rx#: [id number] Oral 50 / 300 50 / 50 Other: # Voids 1 - Labs CBC & BMP: 02/19/19 04:39 02/19/19 04:39 Labs: Abnormal lab results WBC 11.7 K/mcL (4.3-11.1) H 02/19/19 04:39 RBC 3.19 M/mcL (3.82-4.97) L 02/19/19 04:39 Hgb 9.9 g/dL (11.5-15.4) L 02/19/19 04:39 Hct 29.0 % (35.3-44.9) L 02/19/19 04:39 Sodium 128 mEq/L (136-145) L 02/19/19 04:39 Potassium 3.2 mEq/L (3.5-5.1) L 02/19/19 04:39 Chloride 93 mEq/L (98-107) L 02/19/19 04:39 BUN 24 mg/dL (8-23) H 02/18/19 03:54 Est GFR (Non-Af Amer) 53 (> 60) L 02/19/19 04:39 Glucose 117 mg/dL (70-105) H 02/19/19 04:39 POC Glucose 153 mg/dL (70-99) H 02/17/19 21:23 Calculated Osmolality 268 (280-300) L 02/19/19 04:39 Calcium 8.2 mg/dL (8.6-10.3) L 02/18/19 03:54 - VTE Documentation of Mechanical Device: Venous foot pump, device Consult Discharge Plan - Plan Referrals: Ousmane Ng Jr, MD [Primary Care Provider] - Prescriptions: Aspirin Enteric Coated [Aspirin EC] 325 mg PO BID 10 Days #20 tablet. Prescription Printed Docusate Sodium [Colace] 100 mg PO BID 5 Days #10 capsule Prescription Printed Acetaminophen [Non-Aspirin Extra Strength] 500 mg PO Q6H PRN 7 Days #28 tablet PRN Reason: Mild To Moderate Pain Prescription Printed OxyCODONE Immed Rel [Roxicodone 5 MG] 5 mg PO Q6HR PRN 5 Days #20 tablet PRN Reason: Severe Pain Prescription Printed
[2019-02-19] MEDS: predniSONE 5 MG TABLET PO SCH (08:26)
[2019-02-19] MEDS: Primidone 50 MG TABLET PO SCH (08:27)
[2019-02-19] MEDS: Aspirin Enteric Coated 81 MG Tablet PO SCH (08:27)
[2019-02-19] MEDS: Ascorbic Acid 500 MG TABLET PO SCH ×2 (08:27→16:25)
[2019-02-19] MEDS: amLODIPine 5 MG TABLET PO SCH (08:27)
[2019-02-19] MEDS: Cholecalciferol (D-3) 1,000 UNIT (25MCG) TABLET PO SCH ×2 (08:27→20:16)
[2019-02-19] MEDS: Multivit/Ca/Min/Fe/FA 1 TAB TABLET PO SCH (08:28)
[2019-02-19] MEDS ORDERED: 0.9 % Sodium Chloride 1,000 ML IV ONE (08:53)
[2019-02-19 15:50] LABS: Calcium 8.9 mg/dL (8.6-10.3); Potassium 3.3 mEq/L (3.5-5.1)
[2019-02-20] MEDS: Levothyroxine 25 MCG TABLET PO SCH (05:37)
[2019-02-20] MEDS: Ascorbic Acid 500 MG TABLET PO SCH ×2 (07:31→17:20)
[2019-02-20] MEDS: Cholecalciferol (D-3) 1,000 UNIT (25MCG) TABLET PO SCH (07:31)
[2019-02-20] MEDS: Multivit/Ca/Min/Fe/FA 1 TAB TABLET PO SCH (07:31)
[2019-02-20] MEDS: amLODIPine 5 MG TABLET PO SCH (07:32)
[2019-02-20] MEDS: Primidone 50 MG TABLET PO SCH (07:32)
[2019-02-20] MEDS: predniSONE 5 MG TABLET PO SCH (07:32)
[2019-02-20] MEDS: Aspirin Enteric Coated 81 MG Tablet PO SCH (07:33)
--- NOTE | 2019-02-20 08:02 | Orthopedics Progress Note ---
Date of Encounter: 02/20/19 Time of Encounter: 08:01 - Assessment and Plan (1) Acute blood loss anemia Current Visit: Yes Status: Acute Subjective Interval history: Patient was seen this morning doing well without complaints. Afebrile vital signs stable. Operative extremity: Neurovascularly intact Dressing clean dry and intact Calves nontender Assessment and plan: Continue with postoperative care Objective Vital signs: Vital Signs Temp Pulse Resp BP Pulse Ox 02/20/19 03:58 99.6 F 97 16 160/70 92 02/19/19 23:07 99.1 F 93 16 173/73 95 02/19/19 19:02 98.3 F 87 16 164/82 93 02/19/19 16:46 97.5 F L 88 17 145/68 92 02/19/19 12:21 98.4 F 85 18 145/68 94 Intake and Output 02/19/19 02/20/19 02/20/19 23:59 07:59 15:59 Intake Total 200 / 450 700 / 700 Output Total 600 / 600 Balance -400 / -150 700 / 700 Intake: Oral 200 / 450 700 / 700 Output: Urine 600 / 600 Other: # Voids 1 1 Weight 70.8 kg Patient Weight 02/20/19 23:59 Weight 70.8 kg - Labs CBC & BMP: 02/19/19 04:39 02/19/19 15:05 Labs: Abnormal lab results WBC 11.7 K/mcL (4.3-11.1) H 02/19/19 04:39 RBC 3.19 M/mcL (3.82-4.97) L 02/19/19 04:39 Hgb 9.9 g/dL (11.5-15.4) L 02/19/19 04:39 Hct 29.0 % (35.3-44.9) L 02/19/19 04:39 Sodium 130 mEq/L (136-145) L 02/19/19 15:05 Potassium 3.3 mEq/L (3.5-5.1) L 02/19/19 15:05 Chloride 94 mEq/L (98-107) L 02/19/19 15:05 BUN 24 mg/dL (8-23) H 02/18/19 03:54 Est GFR ( Amer) 59 (> 60) L 02/19/19 15:05 Est GFR (Non-Af Amer) 49 (> 60) L 02/19/19 15:05 Glucose 197 mg/dL (70-105) H 02/19/19 15:05 POC Glucose 153 mg/dL (70-99) H 02/17/19 21:23 Calculated Osmolality 276 (280-300) L 02/19/19 15:05 Calcium 8.2 mg/dL (8.6-10.3) L 02/18/19 03:54 - VTE Documentation of Mechanical Device: Venous foot pump, device Consult Discharge Plan - Plan Referrals: Ousmane Ng Jr, MD [Primary Care Provider] - Prescriptions: Aspirin Enteric Coated [Aspirin EC] 325 mg PO BID 10 Days #20 tablet.dr Prescription Printed Docusate Sodium [Colace] 100 mg PO BID 5 Days #10 capsule Prescription Printed Acetaminophen [Non-Aspirin Extra Strength] 500 mg PO Q6H PRN 7 Days #28 tablet PRN Reason: Mild To Moderate Pain Prescription Printed OxyCODONE Immed Rel [Roxicodone 5 MG] 5 mg PO Q6HR PRN 5 Days #20 tablet PRN Reason: Severe Pain Prescription Printed
[2019-02-20 08:33] LABS: Basophils % 0.3 %; Eosinophils # 0.1 K/mcL (0.0-0.6); Eosinophils % 0.5 %; Hematocrit 30.1 % (35.3-44.9); Hemoglobin 10.3 g/dL (11.5-15.4); Immature Granulocytes % 0.8 % (0-4); Lymphocytes # 3.4 K/mcL (0.6-4.6); Mean Corpuscular HGB Conc 34.2 g/dL (31.6-35.5); Mean Corpuscular Hemoglobin 31.2 pg (28.0-33.3); Mean Corpuscular Volume 91.2 fL (83.0-100.0); Mean Platelet Volume 9.4 fL (9.4-12.4); Monocytes # 1.2 K/mcL (0.0-1.3); Monocytes % 9.4 %; Neutrophils # 8.2 K/mcL (1.6-8.9); Platelet Count 278 K/mcL (140-400); Red Cell Distribution Width 13.2 % (11.5-14.5)
[2019-02-20 08:48] LABS: Blood Urea Nitrogen 11 mg/dL (8-23); Calcium 9.2 mg/dL (8.6-10.3); Carbon Dioxide 29 mEq/L (23-29); Chloride 95 mEq/L (98-107); Glucose 118 mg/dL (70-105); Osmolality,Calculated 276 (280-300); Potassium 3.5 mEq/L (3.5-5.1); Sodium 133 mEq/L (136-145)
[2019-02-20 09:13] LABS: BUN/Creatinine Ratio 12 (6-26); eGFR For African Americans > 60 (> 60); eGFR For Non-African Americans 60 (> 60)
[2019-02-20 15:37] VITALS: BP 150/70
[2019-02-20 17:23] LABS: Adenovirus Not Detected (Not Detect); Bordetella Pertussis Not Detected (Not Detect); Chlamydophila pneumoniae Not Detected (Not Detect); Coronavirus 229E Not Detected (Not Detect); Coronavirus HKU1 Not Detected (Not Detect); Coronavirus NL63 Not Detected (Not Detect); Coronavirus OC43 Not Detected (Not Detect); Human Metapneumovirus Not Detected (Not Detect); Human Rhinovirus/Enterovirus Not Detected (Not Detect); Influenza A Subtype 2009 H1 Not Detected (Not Detect); Influenza A Untypeable Not Detected (Not Detect); Influenza B Not Detected (Not Detect); Mycoplasma pneumoniae Not Detected (Not Detect); Parainfluenza Virus 1 Not Detected (Not Detect); Parainfluenza Virus 2 Not Detected (Not Detect); Parainfluenza Virus 3 Not Detected (Not Detect); Parainfluenza Virus 4 Not Detected (Not Detect); Respiratory Syncytial Virus Not Detected (Not Detect)
== END 2019-02-20 19:49 | disposition home health service (06) ==
LOC: SAMDAY 09:43 → 3NENU 09:43
PROVIDERS: ADMIT Orthopaedic Surgery; ATTEND Orthopaedic Surgery

== ENCOUNTER 2019-05-01 21:50 | Inpatient (IN) ==
[2019-05-01] MEDS ORDERED: 0.9 % Sodium Chloride 1,000 ML IVC ONE ×2 (23:07→23:49)
[2019-05-01] MEDS ORDERED: cefTRIAXone 1,000 MG in Water for inj. (sterile) 10 ML IVP ONE (23:36)
[2019-05-02 00:15] LABS: Basophils % 0.3 %; Eosinophils # 0.1 K/mcL (0.0-0.6); Eosinophils % 0.6 %; Hematocrit 35.1 % (35.3-44.9); Hemoglobin 11.9 g/dL (11.5-15.4); Immature Granulocytes % 0.9 % (0-4); Lymphocytes # 2.6 K/mcL (0.6-4.6); Lymphocytes % 19.3 %; Mean Corpuscular HGB Conc 33.9 g/dL (31.6-35.5); Mean Corpuscular Hemoglobin 31.1 pg (28.0-33.3); Mean Corpuscular Volume 91.6 fL (83.0-100.0); Mean Platelet Volume 9.7 fL (9.4-12.4); Monocytes # 1.5 K/mcL (0.0-1.3); Neutrophils # 9.2 K/mcL (1.6-8.9); Platelet Count 291 K/mcL (140-400); Red Blood Count 3.83 M/mcL (3.82-4.97); Red Cell Distribution Width 12.5 % (11.5-14.5); Segmented Neutrophils % 67.9 %; White Blood Count 13.5 K/mcL (4.3-11.1)
[2019-05-02 00:20] LABS: Bilirubin,Urine Small (Negative); Blood,Urine Negative (Negative); Clarity,Urine Clear (Clear); Color,Urine Yellow (Yellow); Glucose,Urine (UA) Normal (Normal); Ketones,Urine 40 mg/dL (Negative); Leukocyte Esterase,Urine Negative (Negative); Nitrite,Urine Negative (Negative); PH,Urine 6.5 pH Units (5.0-8.0); Protein,Urine 100 mg/dL (Neg-Trace); Urobilinogen,Urine Normal (Normal)
[2019-05-02 00:23] LABS: Bacteria,Urine None Seen per hpf (None-Few); Hyaline Casts,Urine None Seen per lpf (None-Few); Squamous Epithelial Cell,Urine Many per lpf (None-Few)
[2019-05-02 00:25] LABS: Blood Urea Nitrogen 17 mg/dL (8-23); Calcium 9.7 mg/dL (8.6-10.3); Carbon Dioxide 24 mEq/L (23-29); Chloride 94 mEq/L (98-107); Glucose 130 mg/dL (70-105); Osmolality,Calculated 275 (280-300); Potassium 3.4 mEq/L (3.5-5.1); Sodium 131 mEq/L (136-145)
[2019-05-02] MEDS ORDERED: Azithromycin 500 MG in 0.9 % Sodium Chloride 250 ML IVPB ONE (00:36)
[2019-05-02 00:46] LABS: BUN/Creatinine Ratio 16 (6-26)
[2019-05-02 00:47] LABS: eGFR For African Americans > 60 (> 60); eGFR For Non-African Americans 50 (> 60)
[2019-05-02] MEDS: Tobramycin/Dex Opth DROPS 2.5 ML BOTTLE RIGHT EYE SCH ×2 (06:27→08:07)
[2019-05-02] MEDS ORDERED: *HR* OxyCODONE Immed Rel 5 MG TABLET PO PRN (07:19)
[2019-05-02] MEDS: amLODIPine 5 MG TABLET PO SCH (08:06)
[2019-05-02] MEDS: Cholecalciferol (D-3) 1,000 UNIT (25MCG) TABLET PO SCH (08:06)
[2019-05-02] MEDS: predniSONE 5 MG TABLET PO SCH (08:06)
[2019-05-02] MEDS ORDERED: Primidone 50 MG TABLET PO SCH (09:00)
[2019-05-02 12:46] LABS: Adenovirus Not Detected (Not Detect); Bordetella Pertussis Not Detected (Not Detect); Chlamydophila pneumoniae Not Detected (Not Detect); Coronavirus 229E Not Detected (Not Detect); Coronavirus HKU1 Not Detected (Not Detect); Coronavirus NL63 Not Detected (Not Detect); Coronavirus OC43 Not Detected (Not Detect); Human Metapneumovirus Not Detected (Not Detect); Human Rhinovirus/Enterovirus Not Detected (Not Detect); Influenza A Subtype 2009 H1 Not Detected (Not Detect); Influenza A Untypeable Not Detected (Not Detect); Influenza B Not Detected (Not Detect); Mycoplasma pneumoniae Not Detected (Not Detect); Parainfluenza Virus 1 Not Detected (Not Detect); Parainfluenza Virus 2 Not Detected (Not Detect); Parainfluenza Virus 3 Not Detected (Not Detect); Parainfluenza Virus 4 Not Detected (Not Detect); Respiratory Syncytial Virus Not Detected (Not Detect)
[2019-05-02] MEDS ORDERED: Ipratropium/Albuterol Neb 3 ML IH PRN (17:56)
[2019-05-02] MEDS: Multivit/Ca/Min/Fe/FA 1 TAB TABLET PO SCH (20:47)
[2019-05-02] MEDS: Primidone 50 MG TABLET PO SCH (20:47)
[2019-05-02] MEDS: Azithromycin 500 MG in 0.9 % Sodium Chloride 250 ML IVPB SCH (22:26)
[2019-05-03 01:27] LABS: Basophils # 0.1 K/mcL (0.0-0.2); Basophils % 0.7 %; Eosinophils # 0.1 K/mcL (0.0-0.6); Eosinophils % 0.7 %; Hematocrit 30.9 % (35.3-44.9); Immature Granulocytes % 2.3 % (0-4); Lymphocytes # 2.7 K/mcL (0.6-4.6); Lymphocytes % 20.4 %; Mean Corpuscular HGB Conc 33.3 g/dL (31.6-35.5); Mean Corpuscular Hemoglobin 30.6 pg (28.0-33.3); Mean Corpuscular Volume 91.7 fL (83.0-100.0); Mean Platelet Volume 10.1 fL (9.4-12.4); Monocytes # 1.7 K/mcL (0.0-1.3); Neutrophils # 8.4 K/mcL (1.6-8.9); Platelet Count 269 K/mcL (140-400); Red Blood Count 3.37 M/mcL (3.82-4.97); Red Cell Distribution Width 12.5 % (11.5-14.5); Segmented Neutrophils % 62.9 %; White Blood Count 13.4 K/mcL (4.3-11.1)
[2019-05-03 01:30] LABS: Hemoglobin 10.3 g/dL (11.5-15.4)
[2019-05-03 03:09] LABS: BUN/Creatinine Ratio 13 (6-26); Blood Urea Nitrogen 12 mg/dL (8-23); Calcium 9.1 mg/dL (8.6-10.3); Carbon Dioxide 22 mEq/L (23-29); Chloride 100 mEq/L (98-107); Glucose 124 mg/dL (70-105); Osmolality,Calculated 277 (280-300); Potassium 3.1 mEq/L (3.5-5.1); Sodium 133 mEq/L (136-145); eGFR For African Americans > 60 (> 60); eGFR For Non-African Americans 59 (> 60)
[2019-05-03] MEDS: Levothyroxine 25 MCG TABLET PO SCH (06:36)
[2019-05-03] MEDS: amLODIPine 5 MG TABLET PO SCH (07:28)
[2019-05-03] MEDS: predniSONE 5 MG TABLET PO SCH (07:29)
[2019-05-03] MEDS: Cholecalciferol (D-3) 1,000 UNIT (25MCG) TABLET PO SCH (07:29)
[2019-05-03] MEDS ORDERED: Acetaminophen 325 MG TABLET PO ONE (20:25)
[2019-05-03] MEDS ORDERED: Melatonin 3 MG TABLET PO ONE (20:26)
[2019-05-03] MEDS: Primidone 50 MG TABLET PO SCH (20:53)
[2019-05-03] MEDS: Multivit/Ca/Min/Fe/FA 1 TAB TABLET PO SCH (20:53)
[2019-05-03] MEDS: Azithromycin 500 MG in 0.9 % Sodium Chloride 250 ML IVPB SCH (21:52)
[2019-05-04] MEDS: Levothyroxine 25 MCG TABLET PO SCH (06:05)
[2019-05-04 07:35] LABS: Basophils # 0.1 K/mcL (0.0-0.2); Basophils % 0.8 %; Eosinophils # 0.1 K/mcL (0.0-0.6); Eosinophils % 0.9 %; Hematocrit 32.6 % (35.3-44.9); Hemoglobin 11.3 g/dL (11.5-15.4); Immature Granulocytes % 4.4 % (0-4); Lymphocytes # 2.5 K/mcL (0.6-4.6); Lymphocytes % 17.9 %; Mean Corpuscular HGB Conc 34.7 g/dL (31.6-35.5); Mean Corpuscular Volume 89.3 fL (83.0-100.0); Mean Platelet Volume 9.8 fL (9.4-12.4); Monocytes # 1.5 K/mcL (0.0-1.3); Monocytes % 10.6 %; Platelet Count 315 K/mcL (140-400); Red Blood Count 3.65 M/mcL (3.82-4.97); Red Cell Distribution Width 12.4 % (11.5-14.5); Segmented Neutrophils % 65.4 %; White Blood Count 13.8 K/mcL (4.3-11.1)
[2019-05-04 07:50] LABS: BUN/Creatinine Ratio 11 (6-26); Blood Urea Nitrogen 9 mg/dL (8-23); Calcium 9.2 mg/dL (8.6-10.3); Carbon Dioxide 23 mEq/L (23-29); Chloride 94 mEq/L (98-107); Glucose 125 mg/dL (70-105); Osmolality,Calculated 270 (280-300); Potassium 3.3 mEq/L (3.5-5.1); Sodium 130 mEq/L (136-145); eGFR For African Americans > 60 (> 60); eGFR For Non-African Americans > 60 (> 60)
[2019-05-04] MEDS ORDERED: cefTRIAXone 1,000 MG in 0.9 % Sodium Chloride Mini Bag 100 ML IVPB SCH (08:00)
[2019-05-04] MEDS ORDERED: Potassium Chloride Elixir 20 MEQ/15 ML UDC PO ONE (10:12)
[2019-05-04] MEDS: cefTRIAXone 1,000 MG in Water for inj. (sterile) 10 ML IVP SCH (10:12)
[2019-05-04] MEDS: amLODIPine 5 MG TABLET PO SCH (10:17)
[2019-05-04] MEDS: Cholecalciferol (D-3) 1,000 UNIT (25MCG) TABLET PO SCH (10:17)
[2019-05-04] MEDS: predniSONE 5 MG TABLET PO SCH (10:17)
[2019-05-04] MEDS: Azithromycin 500 MG in 0.9 % Sodium Chloride 250 ML IVPB SCH (21:33)
[2019-05-04] MEDS: Multivit/Ca/Min/Fe/FA 1 TAB TABLET PO SCH (21:33)
[2019-05-04] MEDS: Primidone 50 MG TABLET PO SCH (21:33)
[2019-05-04] MEDS ORDERED: Melatonin 3 MG TABLET PO PRN (22:24)
[2019-05-05 03:21] LABS: Basophils % 0.3 %; Eosinophils # 0.2 K/mcL (0.0-0.6); Eosinophils % 1.2 %; Hematocrit 32.5 % (35.3-44.9); Hemoglobin 10.9 g/dL (11.5-15.4); Immature Granulocytes % 4.7 % (0-4); Lymphocytes # 2.2 K/mcL (0.6-4.6); Mean Corpuscular HGB Conc 33.5 g/dL (31.6-35.5); Mean Corpuscular Volume 92.3 fL (83.0-100.0); Mean Platelet Volume 9.4 fL (9.4-12.4); Monocytes # 1.4 K/mcL (0.0-1.3); Monocytes % 9.3 %; Neutrophils # 10.2 K/mcL (1.6-8.9); Platelet Count 287 K/mcL (140-400); Red Blood Count 3.52 M/mcL (3.82-4.97); Red Cell Distribution Width 12.5 % (11.5-14.5); Segmented Neutrophils % 69.5 %; White Blood Count 14.7 K/mcL (4.3-11.1)
[2019-05-05 03:36] LABS: BUN/Creatinine Ratio 12 (6-26); Blood Urea Nitrogen 9 mg/dL (8-23); Calcium 9.1 mg/dL (8.6-10.3); Carbon Dioxide 22 mEq/L (23-29); Chloride 92 mEq/L (98-107); Glucose 137 mg/dL (70-105); Osmolality,Calculated 265 (280-300); Potassium 3.7 mEq/L (3.5-5.1); Sodium 127 mEq/L (136-145); eGFR For African Americans > 60 (> 60); eGFR For Non-African Americans > 60 (> 60)
[2019-05-05] MEDS: Levothyroxine 25 MCG TABLET PO SCH (06:10)
[2019-05-05 08:05] VITALS: BP 171/77
[2019-05-05] MEDS: cefTRIAXone 1,000 MG in Water for inj. (sterile) 10 ML IVP SCH (09:39)
[2019-05-05] MEDS: Cholecalciferol (D-3) 1,000 UNIT (25MCG) TABLET PO SCH (09:40)
[2019-05-05] MEDS: amLODIPine 5 MG TABLET PO SCH (09:40)
[2019-05-05] MEDS: predniSONE 5 MG TABLET PO SCH (09:41)
[2019-05-05] MEDS ORDERED: Ondansetron ODT 4 MG TAB.RAPDIS SL ONE (11:00)
== END 2019-05-05 13:55 | disposition home or self-care (01) | DRG 871 ==
LOC: 3ANU 21:50 → EMEROOARM 21:50 → SUATTDRO 05-02 02:48 → 3ANU 05-02 03:25
PROVIDERS: ADMIT Internal Medicine; ATTEND Family Medicine

== ENCOUNTER 2019-05-07 15:54 | Inpatient (IN) ==
[2019-05-07] MEDS ORDERED: 0.9 % Sodium Chloride 1,000 ML IVC ONE (17:06)
[2019-05-07 17:15] LABS: Basophils # 0.2 K/mcL (0.0-0.2); Basophils % 1.1 %; Eosinophils # 0.1 K/mcL (0.0-0.6); Hemoglobin 11.7 g/dL (11.5-15.4); Immature Granulocytes % 6.6 % (0-4); Lymphocytes # 2.2 K/mcL (0.6-4.6); Lymphocytes % 15.8 %; Mean Corpuscular HGB Conc 34.4 g/dL (31.6-35.5); Mean Corpuscular Hemoglobin 30.4 pg (28.0-33.3); Mean Corpuscular Volume 88.3 fL (83.0-100.0); Mean Platelet Volume 8.8 fL (9.4-12.4); Monocytes % 8.1 %; Neutrophils # 9.6 K/mcL (1.6-8.9); Platelet Count 417 K/mcL (140-400); Red Blood Count 3.85 M/mcL (3.82-4.97); Red Cell Distribution Width 12.2 % (11.5-14.5); Segmented Neutrophils % 67.4 %; White Blood Count 14.2 K/mcL (4.3-11.1)
[2019-05-07] MEDS ORDERED: Cefepime HCl 2,000 MG in Water for inj. (sterile) 20 ML IVP STA (17:23)
[2019-05-07 17:28] LABS: Monocytes # 1.2 K/mcL (0.0-1.3)
[2019-05-07 17:32] LABS: BUN/Creatinine Ratio 11 (6-26); Blood Urea Nitrogen 10 mg/dL (8-23); Calcium 9.6 mg/dL (8.6-10.3); Carbon Dioxide 25 mEq/L (23-29); Chloride 90 mEq/L (98-107); Glucose 100 mg/dL (70-105); Osmolality,Calculated 265 (280-300); Potassium 3.4 mEq/L (3.5-5.1); Sodium 128 mEq/L (136-145); Troponin I 0.03 ng/mL (< 0.04); eGFR For African Americans > 60 (> 60); eGFR For Non-African Americans 60 (> 60)
[2019-05-07 19:29] LABS: VBG HCO3 23 mEq/L (21-27); VBG PCO2 30 mmHg (41-51); VBG PO2 161 mmHg (25-50)
[2019-05-07 20:22] LABS: Bilirubin,Urine Negative (Negative); Blood,Urine Negative (Negative); Clarity,Urine Clear (Clear); Color,Urine Yellow (Yellow); Glucose,Urine (UA) Normal (Normal); Ketones,Urine Trace mg/dL (Negative); Leukocyte Esterase,Urine Negative (Negative); Nitrite,Urine Negative (Negative); Protein,Urine Trace mg/dL (Neg-Trace); Specific Gravity,Urine 1.009 (1.010-1.025); Urobilinogen,Urine Normal (Normal)
[2019-05-07 21:03] LABS: Bacteria,Urine None Seen per hpf (None-Few); RBC,Urine 0-3 per hpf (0-3); Squamous Epithelial Cell,Urine Moderate per lpf (None-Few); WBC,Urine 0-3 per hpf (0-3)
[2019-05-07 23:38] LABS: BUN/Creatinine Ratio 11 (6-26); Blood Urea Nitrogen 9 mg/dL (8-23); Calcium 9.1 mg/dL (8.6-10.3); Carbon Dioxide 24 mEq/L (23-29); Chloride 96 mEq/L (98-107); Glucose 100 mg/dL (70-105); Osmolality,Calculated 273 (280-300); Potassium 3.3 mEq/L (3.5-5.1); Sodium 132 mEq/L (136-145); eGFR For African Americans > 60 (> 60); eGFR For Non-African Americans > 60 (> 60)
[2019-05-08] MEDS ORDERED: Naloxone 0.4 MG/ML INJ IVP PRN (00:05)
[2019-05-08] MEDS ORDERED: Melatonin 3 MG TABLET PO PRN (00:09)
[2019-05-08 04:55] LABS: Hematocrit 30.5 % (35.3-44.9); Hemoglobin 10.4 g/dL (11.5-15.4); Mean Corpuscular HGB Conc 34.1 g/dL (31.6-35.5); Mean Corpuscular Hemoglobin 30.8 pg (28.0-33.3); Mean Corpuscular Volume 90.2 fL (83.0-100.0); Mean Platelet Volume 8.7 fL (9.4-12.4); Platelet Count 377 K/mcL (140-400); Red Blood Count 3.38 M/mcL (3.82-4.97); Red Cell Distribution Width 12.5 % (11.5-14.5); White Blood Count 11.5 K/mcL (4.3-11.1)
[2019-05-08 05:38] LABS: Chloride 97 mEq/L (98-107); Potassium 3.5 mEq/L (3.5-5.1); Sodium 131 mEq/L (136-145)
[2019-05-08 05:39] LABS: Blood Urea Nitrogen 10 mg/dL (8-23); Calcium 8.9 mg/dL (8.6-10.3); Glucose 101 mg/dL (70-105); Magnesium 1.6 mg/dL (1.6-2.6); Osmolality,Calculated 271 (280-300)
[2019-05-08] MEDS: *HR* Heparin 5,000 UNIT/ML VIAL SQ SCH ×2 (05:39→16:38)
[2019-05-08] MEDS: Levothyroxine 25 MCG TABLET PO SCH (05:39)
[2019-05-08 06:42] LABS: BUN/Creatinine Ratio 12 (6-26); Carbon Dioxide 21 mEq/L (23-29); eGFR For African Americans > 60 (> 60); eGFR For Non-African Americans > 60 (> 60)
[2019-05-08] MEDS ORDERED: Cefepime HCl 2,000 MG in Water for inj. (sterile) 20 ML IVP SCH ×2 (08:00→20:00)
[2019-05-08] MEDS: amLODIPine 5 MG TABLET PO SCH (08:18)
[2019-05-08] MEDS: predniSONE 5 MG TABLET PO SCH (08:18)
[2019-05-08] MEDS: Ipratropium/Albuterol Neb 3 ML IH SCH ×2 (15:36→22:36)
[2019-05-08] MEDS: Primidone 50 MG TABLET PO SCH (16:39)
[2019-05-08] MEDS: Cefepime HCl 2,000 MG in 0.9 % Sodium Chloride Mini Bag 100 ML IVPB SCH (17:48)
[2019-05-09] MEDS: Ipratropium/Albuterol Neb 3 ML IH SCH ×4 (04:14→22:45)
[2019-05-09] MEDS: Levothyroxine 25 MCG TABLET PO SCH (05:36)
[2019-05-09] MEDS: *HR* Heparin 5,000 UNIT/ML VIAL SQ SCH ×2 (05:36→18:24)
[2019-05-09] MEDS: Cefepime HCl 2,000 MG in 0.9 % Sodium Chloride Mini Bag 100 ML IVPB SCH ×2 (05:37→18:24)
[2019-05-09 06:30] LABS: Basophils # 0.1 K/mcL (0.0-0.2); Basophils % 1.1 %; Eosinophils # 0.2 K/mcL (0.0-0.6); Eosinophils % 1.8 %; Hematocrit 29.7 % (35.3-44.9); Hemoglobin 9.9 g/dL (11.5-15.4); Immature Granulocytes % 4.7 % (0-4); Lymphocytes # 2.5 K/mcL (0.6-4.6); Lymphocytes % 22.8 %; Mean Corpuscular HGB Conc 33.3 g/dL (31.6-35.5); Mean Corpuscular Hemoglobin 30.5 pg (28.0-33.3); Mean Corpuscular Volume 91.4 fL (83.0-100.0); Mean Platelet Volume 8.8 fL (9.4-12.4); Neutrophils # 6.5 K/mcL (1.6-8.9); Platelet Count 399 K/mcL (140-400); Red Blood Count 3.25 M/mcL (3.82-4.97); Red Cell Distribution Width 12.5 % (11.5-14.5); Segmented Neutrophils % 60.6 %; White Blood Count 10.7 K/mcL (4.3-11.1)
[2019-05-09 06:47] LABS: BUN/Creatinine Ratio 10 (6-26); Blood Urea Nitrogen 9 mg/dL (8-23); Calcium 8.9 mg/dL (8.6-10.3); Carbon Dioxide 25 mEq/L (23-29); Chloride 97 mEq/L (98-107); Glucose 114 mg/dL (70-105); Magnesium 1.9 mg/dL (1.6-2.6); Osmolality,Calculated 276 (280-300); Potassium 3.2 mEq/L (3.5-5.1); Sodium 133 mEq/L (136-145); eGFR For African Americans > 60 (> 60); eGFR For Non-African Americans > 60 (> 60)
[2019-05-09] MEDS: amLODIPine 5 MG TABLET PO SCH (09:23)
[2019-05-09] MEDS: Multivit/Ca/Min/Fe/FA 1 TAB TABLET PO SCH (09:23)
[2019-05-09] MEDS: predniSONE 5 MG TABLET PO SCH (09:23)
[2019-05-09] MEDS: Primidone 50 MG TABLET PO SCH (18:24)
[2019-05-10 02:14] LABS: Hematocrit 29.2 % (35.3-44.9); Hemoglobin 10.2 g/dL (11.5-15.4); Mean Corpuscular HGB Conc 34.9 g/dL (31.6-35.5); Mean Corpuscular Hemoglobin 30.5 pg (28.0-33.3); Mean Corpuscular Volume 87.4 fL (83.0-100.0); Mean Platelet Volume 8.8 fL (9.4-12.4); Platelet Count 447 K/mcL (140-400); Red Blood Count 3.34 M/mcL (3.82-4.97); Red Cell Distribution Width 12.7 % (11.5-14.5); White Blood Count 10.9 K/mcL (4.3-11.1)
[2019-05-10 02:35] LABS: BUN/Creatinine Ratio 13 (6-26); Blood Urea Nitrogen 12 mg/dL (8-23); Calcium 9.1 mg/dL (8.6-10.3); Carbon Dioxide 25 mEq/L (23-29); Chloride 97 mEq/L (98-107); Glucose 111 mg/dL (70-105); Osmolality,Calculated 272 (280-300); Potassium 3.8 mEq/L (3.5-5.1); Sodium 131 mEq/L (136-145); eGFR For African Americans > 60 (> 60); eGFR For Non-African Americans 59 (> 60)
[2019-05-10] MEDS: Ipratropium/Albuterol Neb 3 ML IH SCH ×4 (04:13→22:09)
[2019-05-10] MEDS ORDERED: 0.9 % Sodium Chloride Mini Bag 100 ML ONE (05:27)
[2019-05-10] MEDS: *HR* Heparin 5,000 UNIT/ML VIAL SQ SCH ×2 (05:35→17:39)
[2019-05-10] MEDS: Levothyroxine 25 MCG TABLET PO SCH (05:36)
[2019-05-10] MEDS: Cefepime HCl 2,000 MG in 0.9 % Sodium Chloride Mini Bag 100 ML IVPB SCH ×2 (05:36→17:39)
[2019-05-10] MEDS: amLODIPine 5 MG TABLET PO SCH (08:39)
[2019-05-10] MEDS: Multivit/Ca/Min/Fe/FA 1 TAB TABLET PO SCH (08:39)
[2019-05-10] MEDS: predniSONE 5 MG TABLET PO SCH (08:39)
[2019-05-10] MEDS: Primidone 50 MG TABLET PO SCH (17:38)
[2019-05-10] MEDS: Cefdinir 300 MG CAPSULE PO SCH (19:54)
[2019-05-11] MEDS: Ipratropium/Albuterol Neb 3 ML IH SCH (03:53)
[2019-05-11] MEDS: *HR* Heparin 5,000 UNIT/ML VIAL SQ SCH (04:20)
[2019-05-11] MEDS: Levothyroxine 25 MCG TABLET PO SCH (04:20)
[2019-05-11 07:41] VITALS: BP 158/70
[2019-05-11] MEDS: amLODIPine 5 MG TABLET PO SCH (08:36)
[2019-05-11] MEDS: Cefdinir 300 MG CAPSULE PO SCH (08:36)
[2019-05-11] MEDS: Multivit/Ca/Min/Fe/FA 1 TAB TABLET PO SCH (08:36)
[2019-05-11] MEDS: predniSONE 5 MG TABLET PO SCH (08:36)
== END 2019-05-11 11:00 | disposition home or self-care (01) | DRG 871 ==
LOC: 3BNU 15:54 → EMEROOARM 15:54 → 3BNU 21:23
PROVIDERS: ADMIT Internal Medicine; ATTEND Internal Medicine

== ENCOUNTER 2020-03-06 12:47 | Observation (INO) ==
[2020-03-06] MEDS ORDERED: 0.9 % Sodium Chloride 1,000 ML IVC ONE (13:57)
[2020-03-06 14:17] LABS: Basophils % 0.5 %; Eosinophils % 0.3 %; Hematocrit 35.5 % (35.3-44.9); Hemoglobin 11.7 g/dL (11.5-15.4); Immature Granulocytes % 0.8 % (0-4); Lymphocytes # 2.3 K/mcL (0.6-4.6); Lymphocytes % 34.9 %; Mean Corpuscular Hemoglobin 29.9 pg (28.0-33.3); Mean Corpuscular Volume 90.8 fL (83.0-100.0); Mean Platelet Volume 9.9 fL (9.4-12.4); Monocytes # 0.8 K/mcL (0.0-1.3); Monocytes % 11.5 %; Neutrophils # 3.5 K/mcL (1.6-8.9); Platelet Count 267 K/mcL (140-400); Red Blood Count 3.91 M/mcL (3.82-4.97); White Blood Count 6.6 K/mcL (4.3-11.1)
[2020-03-06 14:30] LABS: BUN/Creatinine Ratio 12 (6-26); Blood Urea Nitrogen 15 mg/dL (8-23); Carbon Dioxide 25 mEq/L (23-29); Chloride 97 mEq/L (98-107); Glucose 134 mg/dL (70-105); Osmolality,Calculated 277 (280-300); Potassium 3.6 mEq/L (3.5-5.1); Sodium 132 mEq/L (136-145); Troponin I < 0.03 ng/mL (< 0.04); eGFR For African Americans 50 (> 60); eGFR For Non-African Americans 41 (> 60)
[2020-03-06 15:30] LABS: Adenovirus Not Detected (Not Detect); Bordetella Pertussis Not Detected (Not Detect); Chlamydophila pneumoniae Not Detected (Not Detect); Coronavirus 229E Not Detected (Not Detect); Coronavirus HKU1 Not Detected (Not Detect); Coronavirus NL63 Not Detected (Not Detect); Coronavirus OC43 Not Detected (Not Detect); Human Metapneumovirus Not Detected (Not Detect); Human Rhinovirus/Enterovirus Not Detected (Not Detect); Influenza A Subtype 2009 H1 Not Detected (Not Detect); Influenza B Not Detected (Not Detect); Mycoplasma pneumoniae Not Detected (Not Detect); Parainfluenza Virus 1 Not Detected (Not Detect); Parainfluenza Virus 2 Not Detected (Not Detect); Parainfluenza Virus 3 Not Detected (Not Detect); Parainfluenza Virus 4 Not Detected (Not Detect); Respiratory Syncytial Virus Not Detected (Not Detect)
[2020-03-06 15:31] LABS: SARS-CoV-2 DETECTED (Not Detect)
[2020-03-06] MEDS ORDERED: cefTRIAXone 1,000 MG in 0.9 % Sodium Chloride Mini Bag 100 ML IVPB ONE (15:40)
[2020-03-06] MEDS ORDERED: Azithromycin 500 MG in 0.9 % Sodium Chloride 250 ML IVPB ONE (15:40)
[2020-03-06] MEDS ORDERED: *HR* Promethazine 25 MG/ML VIAL IVP PRN (15:48)
[2020-03-06] MEDS ORDERED: SUMAtriptan succinate 25 MG TABLET PO ONE (17:38)
[2020-03-06] MEDS: Primidone 50 MG TABLET PO SCH (18:14)
[2020-03-06 18:43] LABS: Bilirubin,Urine Negative (Negative); Blood,Urine Negative (Negative); Clarity,Urine Clear (Clear); Color,Urine Light-Yellow (Yellow); Glucose,Urine (UA) Normal (Normal); Ketones,Urine Negative (Negative); Leukocyte Esterase,Urine Small (Negative); Mucus,Urine Few per lpf (None-Few); Nitrite,Urine Negative (Negative); PH,Urine 6.5 pH Units (5.0-8.0); Protein,Urine Trace mg/dL (Neg-Trace); RBC,Urine 0-3 per hpf (0-3); Squamous Epithelial Cell,Urine Few per hpf (None-Few); Urobilinogen,Urine Normal (Normal)
[2020-03-06] MEDS: Melatonin 3 MG TABLET PO PRN (21:36)
[2020-03-06] MEDS: Acetaminophen 325 MG TABLET PO PRN (21:37)
[2020-03-07 01:56] LABS: Hematocrit 32.1 % (35.3-44.9); Hemoglobin 10.5 g/dL (11.5-15.4); Mean Corpuscular HGB Conc 32.7 g/dL (31.6-35.5); Mean Corpuscular Hemoglobin 29.7 pg (28.0-33.3); Mean Corpuscular Volume 90.9 fL (83.0-100.0); Mean Platelet Volume 9.5 fL (9.4-12.4); Platelet Count 218 K/mcL (140-400); Red Blood Count 3.53 M/mcL (3.82-4.97); Red Cell Distribution Width 13.1 % (11.5-14.5); White Blood Count 5.2 K/mcL (4.3-11.1)
[2020-03-07] MEDS: *HR* Heparin 5,000 UNIT/ML VIAL SQ SCH ×2 (05:10→16:57)
[2020-03-07] MEDS: Levothyroxine 25 MCG TABLET PO SCH (05:10)
[2020-03-07 07:17] LABS: BUN/Creatinine Ratio 13 (6-26); Blood Urea Nitrogen 13 mg/dL (8-23); Carbon Dioxide 25 mEq/L (23-29); Chloride 99 mEq/L (98-107); Glucose 104 mg/dL (70-105); Osmolality,Calculated 274 (280-300); Potassium 3.5 mEq/L (3.5-5.1); Sodium 132 mEq/L (136-145); eGFR For African Americans > 60 (> 60); eGFR For Non-African Americans 53 (> 60)
[2020-03-07] MEDS: Acetaminophen 325 MG TABLET PO PRN ×2 (08:47→20:41)
[2020-03-07] MEDS: Azithromycin 500 MG in 0.9 % Sodium Chloride 250 ML IVPB SCH (08:47)
[2020-03-07] MEDS: amLODIPine 5 MG TABLET PO SCH (08:47)
[2020-03-07] MEDS: Dexamethasone 4 MG/ML VIAL IVP SCH (14:15)
[2020-03-07] MEDS: cefTRIAXone 1,000 MG in Water for inj. (sterile) 10 ML IVP SCH (16:57)
[2020-03-07] MEDS: Primidone 50 MG TABLET PO SCH (16:57)
[2020-03-07] MEDS: Melatonin 3 MG TABLET PO PRN (20:41)
[2020-03-08] MEDS: Levothyroxine 25 MCG TABLET PO SCH (06:29)
[2020-03-08] MEDS: *HR* Heparin 5,000 UNIT/ML VIAL SQ SCH (06:29)
[2020-03-08] MEDS: Dexamethasone 4 MG/ML VIAL IVP SCH (07:34)
[2020-03-08] MEDS: amLODIPine 5 MG TABLET PO SCH (07:34)
[2020-03-08] MEDS: Azithromycin 500 MG in 0.9 % Sodium Chloride 250 ML IVPB SCH (07:35)
[2020-03-08] MEDS: cefTRIAXone 1,000 MG in Water for inj. (sterile) 10 ML IVP SCH (07:35)
[2020-03-08 07:51] VITALS: BP 138/81
[2020-03-08 09:07] LABS: Immature Granulocytes % 0.8 % (0-4); Lymphocytes # 1.8 K/mcL (0.6-4.6); Lymphocytes % 36.6 %; Mean Corpuscular HGB Conc 34.4 g/dL (31.6-35.5); Mean Corpuscular Hemoglobin 31.1 pg (28.0-33.3); Mean Corpuscular Volume 90.4 fL (83.0-100.0); Mean Platelet Volume 9.6 fL (9.4-12.4); Monocytes # 0.7 K/mcL (0.0-1.3); Monocytes % 14.1 %; Neutrophils # 2.3 K/mcL (1.6-8.9); Platelet Count 260 K/mcL (140-400); Red Blood Count 3.54 M/mcL (3.82-4.97); Red Cell Distribution Width 12.5 % (11.5-14.5); Segmented Neutrophils % 48.5 %; White Blood Count 4.8 K/mcL (4.3-11.1)
[2020-03-08 09:29] LABS: Albumin 3.6 g/dL (3.5-5.7); Albumin/Globulin Ratio 1.1 (1.1-2.2); Bilirubin,Total 0.3 mg/dL (0.3-1.0); Calcium 8.7 mg/dL (8.6-10.3); Globulin 3.2 g/dL (2.4-3.5); Potassium 3.8 mEq/L (3.5-5.1); Total Protein 6.8 g/dL (6.4-8.9)
== END 2020-03-08 13:54 | disposition home or self-care (01) ==
LOC: EMEROOARM 12:47 → 2NENU 12:47 → SUATTDRO 16:11 → 2NENU 17:00
PROVIDERS: ADMIT Internal Medicine; ATTEND Family Medicine

== ENCOUNTER 2020-07-26 15:14 | Inpatient (IN) ==
[2020-07-26 17:27] LABS: Bacteria,Urine Few per hpf (None-Few); Bilirubin,Urine Negative (Negative); Blood,Urine Trace (Negative); Clarity,Urine Turbid (Clear); Color,Urine Yellow (Yellow); Glucose,Urine (UA) Normal (Normal); Ketones,Urine Negative (Negative); Leukocyte Esterase,Urine Large (Negative); Nitrite,Urine Negative (Negative); PH,Urine 6.5 pH Units (5.0-8.0); Protein,Urine 50 mg/dL (Neg-Trace); Specific Gravity,Urine 1.009 (1.010-1.025); Squamous Epithelial Cell,Urine Few per hpf (None-Few); Urobilinogen,Urine Normal (Normal); WBC,Urine TNTC per hpf (0-3)
[2020-07-26 17:58] LABS: Basophils % 0.3 %; Eosinophils % 0.3 %; Hemoglobin 10.9 g/dL (11.5-15.4); Immature Granulocytes % 0.7 % (0-4); Lymphocytes # 2.4 K/mcL (0.6-4.6); Lymphocytes % 17.9 %; Mean Corpuscular Hemoglobin 29.9 pg (28.0-33.3); Mean Corpuscular Volume 90.4 fL (83.0-100.0); Mean Platelet Volume 9.4 fL (9.4-12.4); Monocytes # 1.4 K/mcL (0.0-1.3); Monocytes % 10.5 %; Neutrophils # 9.6 K/mcL (1.6-8.9); Platelet Count 330 K/mcL (140-400); Red Blood Count 3.65 M/mcL (3.82-4.97); Red Cell Distribution Width 12.9 % (11.5-14.5); Segmented Neutrophils % 70.3 %; White Blood Count 13.6 K/mcL (4.3-11.1)
[2020-07-26 18:20] LABS: INR 1.1; Prothrombin Time 12.9 Seconds (9.4-12.1)
[2020-07-26 18:43] LABS: Alanine Aminotransferase 43 Units/L (7-52); Albumin 4.1 g/dL (3.5-5.7); Albumin/Globulin Ratio 1.2 (1.1-2.2); Alkaline Phosphatase 94 Units/L (34-104); Aspartate Amino Transferase 36 Units/L (13-39); BUN/Creatinine Ratio 15 (6-26); Bilirubin,Direct 0.1 mg/dL (0.0-0.2); Bilirubin,Indirect 0.5 mg/dL (0.0-1.0); Bilirubin,Total 0.6 mg/dL (0.3-1.0); Blood Urea Nitrogen 19 mg/dL (8-23); Calcium 9.2 mg/dL (8.6-10.3); Carbon Dioxide 23 mEq/L (23-29); Chloride 100 mEq/L (98-107); Globulin 3.4 g/dL (2.4-3.5); Glucose 109 mg/dL (70-105); Lipase 20 Units/L (11-82); Osmolality,Calculated 281 (280-300); Potassium 3.8 mEq/L (3.5-5.1); Sodium 134 mEq/L (136-145); Total Protein 7.5 g/dL (6.4-8.9); Troponin I < 0.03 ng/mL (< 0.04); eGFR For African Americans 48 (> 60); eGFR For Non-African Americans 39 (> 60)
[2020-07-26] MEDS ORDERED: *HR* Heparin 5,000 UNIT/ML VIAL IVP ONE (22:17)
[2020-07-26] MEDS ORDERED: *HR* Heparin 5,000 UNIT/ML VIAL IVP PRN ×2 (22:17)
[2020-07-26] MEDS ORDERED: Heparin 25,000UNIT/250ML 1/2NS 25,000 UNIT/250 ML IV.SOLN IVC SCH (22:30)
[2020-07-26] MEDS ORDERED: Isovue-370 500 ML BOTTLE IVP ONE (22:37)
[2020-07-26] MEDS ORDERED: methylPREDNISolone 125 MG/2 ML VIAL IVP ONE (22:38)
[2020-07-26] MEDS ORDERED: 0.9 % Sodium Chloride 1,000 ML IVC ONE (22:41)
[2020-07-26 23:23] LABS: Heparin anti-factor XA UFH < 0.04 IU/mL (0.30-0.70)
[2020-07-26 23:24] LABS: INR 1.1; Prothrombin Time 12.9 Seconds (9.4-12.1)
[2020-07-26 23:31] LABS: Hematocrit 33.4 % (35.3-44.9); Hemoglobin 11.1 g/dL (11.5-15.4); Mean Corpuscular HGB Conc 33.2 g/dL (31.6-35.5); Mean Corpuscular Hemoglobin 30.1 pg (28.0-33.3); Mean Corpuscular Volume 90.5 fL (83.0-100.0); Mean Platelet Volume 9.5 fL (9.4-12.4); Platelet Count 307 K/mcL (140-400); Red Blood Count 3.69 M/mcL (3.82-4.97); Red Cell Distribution Width 12.9 % (11.5-14.5); White Blood Count 13.2 K/mcL (4.3-11.1)
[2020-07-27 00:28] LABS: Adenovirus Not Detected (Not Detect); Bordetella Pertussis Not Detected (Not Detect); Chlamydophila pneumoniae Not Detected (Not Detect); Coronavirus 229E Not Detected (Not Detect); Coronavirus HKU1 Not Detected (Not Detect); Coronavirus NL63 Not Detected (Not Detect); Coronavirus OC43 Not Detected (Not Detect); Human Metapneumovirus Not Detected (Not Detect); Human Rhinovirus/Enterovirus Not Detected (Not Detect); Influenza A Subtype 2009 H1 Not Detected (Not Detect); Influenza B Not Detected (Not Detect); Mycoplasma pneumoniae Not Detected (Not Detect); Parainfluenza Virus 1 Not Detected (Not Detect); Parainfluenza Virus 2 Not Detected (Not Detect); Parainfluenza Virus 3 Not Detected (Not Detect); Parainfluenza Virus 4 Not Detected (Not Detect); Respiratory Syncytial Virus Not Detected (Not Detect); SARS-CoV-2 Not Detected (Not Detect)
[2020-07-27] MEDS ORDERED: Naloxone 0.4 MG/ML INJ IVP PRN (02:01)
[2020-07-27] MEDS ORDERED: Ondansetron 4 MG/2 ML VIAL IVP PRN (02:01)
[2020-07-27] MEDS ORDERED: 0.9 % Sodium Chloride 1,000 ML IVC SCH (02:15)
[2020-07-27] MEDS: Acetaminophen 325 MG TABLET PO PRN ×2 (02:29→13:32)
[2020-07-27] MEDS: cefTRIAXone 1,000 MG in 0.9 % Sodium Chloride Mini Bag 100 ML IVPB SCH (02:29)
[2020-07-27] MEDS: Melatonin 3 MG TABLET PO PRN (02:30)
[2020-07-27] MEDS: Ipratropium 1 PUFF INHALER IH SCH ×5 (03:24→20:22)
[2020-07-27 05:24] LABS: Hematocrit 34.4 % (35.3-44.9); Hemoglobin 11.4 g/dL (11.5-15.4); Mean Corpuscular HGB Conc 33.1 g/dL (31.6-35.5); Mean Corpuscular Hemoglobin 30.3 pg (28.0-33.3); Mean Corpuscular Volume 91.5 fL (83.0-100.0); Mean Platelet Volume 9.9 fL (9.4-12.4); Platelet Count 334 K/mcL (140-400); Red Blood Count 3.76 M/mcL (3.82-4.97); Red Cell Distribution Width 12.9 % (11.5-14.5); White Blood Count 12.5 K/mcL (4.3-11.1)
[2020-07-27 05:55] LABS: Calcium 9.5 mg/dL (8.6-10.3); Potassium 3.8 mEq/L (3.5-5.1)
[2020-07-27] MEDS: *HR* Heparin 5,000 UNIT/ML VIAL SQ SCH ×3 (06:20→21:59)
[2020-07-27] MEDS ORDERED: Melatonin 3 MG TABLET PO PRN (21:00)
[2020-07-27] MEDS: Cholecalciferol (D-3) 1,000 UNIT (25MCG) TABLET PO SCH (21:59)
[2020-07-27] MEDS: Primidone 50 MG TABLET PO SCH (21:59)
[2020-07-28] MEDS: Ipratropium 1 PUFF INHALER IH SCH ×7 (00:08→23:07)
[2020-07-28] MEDS: cefTRIAXone 1,000 MG in 0.9 % Sodium Chloride Mini Bag 100 ML IVPB SCH (01:40)
[2020-07-28] MEDS: *HR* Heparin 5,000 UNIT/ML VIAL SQ SCH ×3 (05:11→20:45)
[2020-07-28] MEDS: Levothyroxine 25 MCG TABLET PO SCH (05:11)
[2020-07-28 05:24] LABS: Basophils # 0.1 K/mcL (0.0-0.2); Basophils % 0.4 %; Eosinophils % 0.1 %; Hemoglobin 10.5 g/dL (11.5-15.4); Immature Granulocytes % 0.8 % (0-4); Lymphocytes # 2.8 K/mcL (0.6-4.6); Mean Corpuscular HGB Conc 32.8 g/dL (31.6-35.5); Mean Corpuscular Hemoglobin 29.8 pg (28.0-33.3); Mean Corpuscular Volume 90.9 fL (83.0-100.0); Mean Platelet Volume 9.6 fL (9.4-12.4); Monocytes # 1.3 K/mcL (0.0-1.3); Monocytes % 7.7 %; Neutrophils # 12.3 K/mcL (1.6-8.9); Platelet Count 318 K/mcL (140-400); Red Blood Count 3.52 M/mcL (3.82-4.97); Red Cell Distribution Width 12.9 % (11.5-14.5); White Blood Count 16.6 K/mcL (4.3-11.1)
[2020-07-28 05:40] LABS: Calcium 9.7 mg/dL (8.6-10.3); Potassium 3.9 mEq/L (3.5-5.1)
[2020-07-28] MEDS: Cholecalciferol (D-3) 1,000 UNIT (25MCG) TABLET PO SCH ×2 (08:55→20:45)
[2020-07-28] MEDS: predniSONE 5 MG TABLET PO SCH (08:56)
[2020-07-28] MEDS: amLODIPine 5 MG TABLET PO SCH (09:51)
[2020-07-28] MEDS ORDERED: Multivit/Ca/Min/Fe/FA 1 TAB TABLET PO SCH (18:00)
[2020-07-28] MEDS: Primidone 50 MG TABLET PO SCH (20:45)
[2020-07-28] MEDS: Acetaminophen 325 MG TABLET PO PRN (20:45)
[2020-07-28] MEDS: Melatonin 3 MG TABLET PO PRN (20:45)
[2020-07-29 01:26] LABS: Basophils # 0.1 K/mcL (0.0-0.2); Basophils % 0.9 %; Eosinophils # 0.2 K/mcL (0.0-0.6); Eosinophils % 1.9 %; Hematocrit 31.7 % (35.3-44.9); Hemoglobin 10.5 g/dL (11.5-15.4); Immature Granulocytes % 1.3 % (0-4); Lymphocytes # 3.2 K/mcL (0.6-4.6); Lymphocytes % 27.1 %; Mean Corpuscular HGB Conc 33.1 g/dL (31.6-35.5); Mean Corpuscular Hemoglobin 30.8 pg (28.0-33.3); Mean Platelet Volume 9.9 fL (9.4-12.4); Monocytes # 0.9 K/mcL (0.0-1.3); Monocytes % 7.5 %; Neutrophils # 7.3 K/mcL (1.6-8.9); Platelet Count 363 K/mcL (140-400); Red Blood Count 3.41 M/mcL (3.82-4.97); Segmented Neutrophils % 61.3 %; White Blood Count 11.9 K/mcL (4.3-11.1)
[2020-07-29 01:52] LABS: Calcium 9.3 mg/dL (8.6-10.3); Magnesium 1.7 mg/dL (1.6-2.6); Phosphorous 3.3 mg/dL (2.7-4.5)
[2020-07-29] MEDS: cefTRIAXone 1,000 MG in 0.9 % Sodium Chloride Mini Bag 100 ML IVPB SCH (02:15)
[2020-07-29] MEDS: Ipratropium 1 PUFF INHALER IH SCH ×3 (03:48→11:17)
[2020-07-29] MEDS: Levothyroxine 25 MCG TABLET PO SCH (05:24)
[2020-07-29] MEDS: *HR* Heparin 5,000 UNIT/ML VIAL SQ SCH (05:24)
[2020-07-29] MEDS: Cholecalciferol (D-3) 1,000 UNIT (25MCG) TABLET PO SCH (08:01)
[2020-07-29] MEDS: amLODIPine 5 MG TABLET PO SCH (08:01)
[2020-07-29] MEDS: predniSONE 5 MG TABLET PO SCH (08:02)
[2020-07-29 11:15] VITALS: BP 155/71
== END 2020-07-29 11:35 | disposition home or self-care (01) | DRG 872 ==
LOC: EMEROOARM 15:14 → 3NENU 15:14 → SUATTDRO 07-27 00:42 → OBSVTOIN 07-27 00:42 → 3NENU 07-27 01:13
PROVIDERS: ADMIT Student in an Organized Health Care Education/Training Program; ATTEND Internal Medicine